=== PATIENT | male | born 1990 | race Caucasian/White ===

== ENCOUNTER 2018-12-31 08:03 | Emergency (ER) | payer MEDICAID ==
[~2018-12-31] VITALS: Ht 185.4 cm; Wt 75.0 kg
[2018-12-31 08:05] VITALS: BP 131/76
== END 2018-12-31 08:20 | disposition home or self-care (01) ==
LOC: ER 08:04
DX: S60.041A Contusion of right ring finger without damage to nail, initial encounter (principal); F17.200 Nicotine dependence, unspecified, uncomplicated; W22.8XXA Striking against or struck by other objects, initial encounter; Y93.89 Activity, other specified; Y92.89 Other specified places as the place of occurrence of the external cause; Y99.8 Other external cause status
CPT/HCPCS: 99282

== ENCOUNTER 2022-08-26 12:51 | Emergency (ER) | payer MEDICAID ==
[~2022-08-26] VITALS: Ht 182.9 cm; Wt 81.8 kg
[2022-08-26 13:00] VITALS: BP 132/91
== END 2022-08-26 13:16 | disposition home or self-care (01) ==
LOC: ER 12:52
DX: S00.01XA Abrasion of scalp, initial encounter (principal); S09.90XA Unspecified injury of head, initial encounter; X58.XXXA Exposure to other specified factors, initial encounter; Y93.89 Activity, other specified; Y92.89 Other specified places as the place of occurrence of the external cause; Y99.8 Other external cause status
CPT/HCPCS: 99283

== ENCOUNTER 2022-10-12 00:02 | Emergency (ER) | payer MEDICAID ==
[~2022-10-12] VITALS: Ht 185.4 cm; Wt 74.1 kg
[2022-10-12 00:44] VITALS: BP 33/66
[2022-10-12] MEDS ORDERED: sulfamethoxazole/trimethoprim DS (800/160mg) tablet PO ONE (04:00)
[2022-10-12] MEDS ORDERED: SULF1TAB49 PO (04:01)
== END 2022-10-12 04:26 | disposition home or self-care (01) ==
LOC: ER 00:04
DX: L02.415 Cutaneous abscess of right lower limb (principal); R59.1 Generalized enlarged lymph nodes; F17.200 Nicotine dependence, unspecified, uncomplicated; F15.10 Other stimulant abuse, uncomplicated; Z79.899 Other long term (current) drug therapy
CPT/HCPCS: 99283

== ENCOUNTER 2023-05-21 19:57 | Emergency (ER) | payer MEDICAID ==
[~2023-05-21] VITALS: Ht 185.4 cm; Wt 76.6 kg
[2023-05-21 20:18] VITALS: BP 126/75; PULSE 111; RESP 18; TEMP 98.4; O2SAT 98
== END 2023-05-21 21:13 | disposition home or self-care (01) ==
LOC: ER 19:58
DX: Z00.00 Encounter for general adult medical examination without abnormal findings (principal); F15.90 Other stimulant use, unspecified, uncomplicated
CPT/HCPCS: 99281